=== PATIENT | female | born 1955 | race African-American/Black ===

== ENCOUNTER 2022-11-23 03:35 | Inpatient (IN) | payer OTHER ==
[~2022-11-23] VITALS: Ht 162.6 cm; Wt 127.0 kg
[2022-11-23] MEDS ORDERED: ONDANSETRON HCL 4 MG/2 ML VIAL IVP ONE ×2 (04:30→08:00)
[2022-11-23] MEDS ORDERED: SODIUM CHLORIDE 0.9% 1,000 ML IV ONE (04:30)
[2022-11-23] MEDS ORDERED: MORPHINE SULFATE 4 MG/ML SYRINGE IVP ONE (05:00)
[2022-11-23 05:07] LABS: BASOPHILS % (AUTO) 0.6 % (0.0-2.0); EOSINOPHILS % (AUTO) 1.6 % (1.0-6.0); HEMATOCRIT 38.9 % (36-46); HEMOGLOBIN 12.1 g/dL (12.0-16.0); LYMPHOCYTES # (AUTO) 1.1 K/uL (1.0-4.8); LYMPHOCYTES % (AUTO) 14.9 % (22.0-44.0); MEAN CORPUSCULAR HEMOGLOBIN 24.4 pg (26.0-34.0); MEAN CORPUSCULAR VOLUME 79 fL (80-100); MONOCYTES # (AUTO) 0.4 K/uL (0.1-1.0); MONOCYTES % (AUTO) 4.8 % (2.0-9.0); NEUTROPHILS # (AUTO) 5.8 K/uL (1.8-7.7); NEUTROPHILS % (AUTO) 78.1 % (40.0-70.0); PLATELET COUNT (AUTO) 266 K/uL (150-450); RED BLOOD CELL COUNT(AUTO) 4.95 MIL/uL (4.00-5.20)
[2022-11-23 05:17] LABS: ANION GAP 8 mmol/L (8-16); CARBON DIOXIDE 28 mmol/L (22-29); CHLORIDE 103 mmol/L (98-107); CREATININE 0.78 mg/dL (0.60-1.30); GLOMERULAR FILTR. RATE CALC > 60 mL/min (>60); GLUCOSE,RANDOM 155 mg/dL (70-110); SODIUM SERUM 139 mmol/L (136-145); UREA NITROGEN, BLOOD 8 mg/dL (7-18)
[2022-11-23 05:30] LABS: B-TYPE NATRIURETIC PEPTIDE 21 pg/mL (0-100)
[2022-11-23 05:34] LABS: ALBUMIN 3.9 g/dL (3.4-5.0); ALKALINE PHOSPHATASE 85 U/L (46-116); BILIRUBIN,TOTAL 0.4 mg/dL (0.1-1.0); LIPASE 105 U/L (73-393); TOTAL PROTEIN, SERUM 6.9 g/dL (6.4-8.2)
[2022-11-23 05:49] LABS: ALANINE AMINOTRANSFERASE 21 U/L (12-78); ASPARTATE AMINOTRANSFERASE 29 U/L (15-37)
[2022-11-23 06:03] LABS: COVID AG,FIA SOURCE NASAL SWAB
[2022-11-23] MEDS ORDERED: NITROGLYCERIN 2% (1 GM=INCH) OINTMENT PACKET TP ONE (07:30)
[2022-11-23] MEDS ORDERED: ASPIRIN 81 MG CHEWABLE TABLET PO ONE (07:30)
[2022-11-23] MEDS ORDERED: DEXTROSE 50%-WATER 25 GM/50 ML SYRINGE IVP PRN (09:30)
[2022-11-23] MEDS ORDERED: MAGNESIUM HYDROXIDE SUSPENSION 30 ML UDCUP PO PRN (09:45)
[2022-11-23] MEDS ORDERED: BISACODYL 10 MG RECTAL RECTAL SUPPOSITORY PR PRN (09:45)
[2022-11-23] MEDS ORDERED: ALBUTEROL SULFATE 2.5 MG/0.5 ML NEB SOLUTION NEB PRN (09:45)
[2022-11-23] MEDS ORDERED: IPRATROPIUM BROMIDE 0.5 MG/2.5 ML NEB SOLUTION NEB PRN (09:45)
[2022-11-23] MEDS ORDERED: 0.9% SODIUM CHLORIDE 10 ML SYRINGE IVP PRN (09:45)
[2022-11-23 10:31] VITALS: BP 156/91
[2022-11-23 10:31] LABS: APPEARANCE,URINE CLEAR (CLEAR); BILIRUBIN,URINE NEGATIVE (NEGATIVE); GLUCOSE, URINE (UA) TRACE mg/dL (NEGATIVE); KETONES,URINE NEGATIVE (NEGATIVE); LEUKOCYTE ESTERASE ,URINE NEGATIVE (NEGATIVE); NITRATE,URINE NEGATIVE (NEGATIVE); OCCULT BLOOD,URINE SMALL (NEGATIVE); PH,URINE 8.5 (5.0-8.0); PROTEIN,URINE NEGATIVE (NEGATIVE); SPECIFIC GRAVITIY, URINE 1.009 (1.003-1.030); UROBILINOGEN,URINE <=1.0 mg/dL (<=1.0)
[2022-11-23 10:37] LABS: AMPHET/METH SCREEN,URINE NEGATIVE (NEGATIVE); BARBITURATE SCREEN, URINE NEGATIVE (NEGATIVE); BENZODIAZEPINES SCREEN,URINE NEGATIVE (NEGATIVE); CANNABINOID SCREEN,URINE NEGATIVE (NEGATIVE); COCAINE SCREEN,URINE POSITIVE (NEGATIVE); METHADONE SCREEN, URINE NEGATIVE (NEGATIVE); OPIATE SCREEN,URINE POSITIVE (NEGATIVE); PHENCYCLIDINE SCREEN,URINE NEGATIVE (NEGATIVE)
[2022-11-23 10:43] LABS: AMYLASE 79 U/L (25-115); FREE T4 (FREE THYROXINE) 0.31 ng/dL (0.76-1.46); THYROID STIMULATING HORMONE 27.48 uIU/mL (0.36-3.74)
[2022-11-23 10:47] LABS: BACTERIA,URINE None Seen /HPF (None Seen); SQUAMOUS EPITHELIAL CELL,UR Few /LPF (None Seen); WBC,URINE None Seen /HPF (0-5)
[2022-11-23] MEDS: PANTOPRAZOLE SODIUM 40 MG/VIAL IVP SCH (11:15)
[2022-11-23] MEDS ORDERED: PNEUMOCOCCAL VACCINE POLYVALENT 0.5 ML VIAL [PPSV23] IM. ONE (11:30)
[2022-11-23] MEDS: ONDANSETRON HCL 4 MG/2 ML VIAL IVP PRN (12:20)
[2022-11-23 16:08] VITALS: BP 178/80
[2022-11-23] MEDS: HEPARIN SODIUM,PORCINE 5,000 UNITS/ML VIAL SQ SCH (16:16)
[2022-11-23] MEDS: ACETAMINOPHEN 325 MG TABLET PO PRN ×2 (16:16→21:28)
[2022-11-23 20:30] VITALS: BP 172/86
[2022-11-23] MEDS: METOPROLOL TARTRATE 25 MG TABLET PO SCH (21:19)
[2022-11-23 22:26] LABS: GLUCOMETER DEV NAME(LOC) 5S.1B; GLUCOSE,POINT OF CARE 134 MG/DL (70-110)
[2022-11-24 00:50] VITALS: BP 164/108
[2022-11-24 02:10] VITALS: BP 201/103
[2022-11-24] MEDS: ENALAPRILAT DIHYDRATE 1.25 MG/ML VIAL IVP PRN ×2 (03:49→20:20)
[2022-11-24 05:39] VITALS: BP 155/104
[2022-11-24 06:16] LABS: BASOPHILS % (AUTO) 0.4 % (0.0-2.0); EOSINOPHILS % (AUTO) 0 % (1.0-6.0); HEMATOCRIT 42.1 % (36-46); HEMOGLOBIN 13.2 g/dL (12.0-16.0); LYMPHOCYTES # (AUTO) 1.6 K/uL (1.0-4.8); LYMPHOCYTES % (AUTO) 13.7 % (22.0-44.0); MEAN CORPUSCULAR HEMOGLOBIN 24.3 pg (26.0-34.0); MEAN CORPUSCULAR HGB CONC 31.3 G/dL (31.0-37.0); MEAN CORPUSCULAR VOLUME 78 fL (80-100); MONOCYTES # (AUTO) 0.7 K/uL (0.1-1.0); MONOCYTES % (AUTO) 6.1 % (2.0-9.0); NEUTROPHILS # (AUTO) 9.3 K/uL (1.8-7.7); NEUTROPHILS % (AUTO) 79.8 % (40.0-70.0); PLATELET COUNT (AUTO) 385 K/uL (150-450); RED BLOOD CELL COUNT(AUTO) 5.42 MIL/uL (4.00-5.20); RED CELL DISTRIBUTION WIDTH 15.9 % (11.5-14.5)
[2022-11-24 06:51] LABS: GLUCOMETER DEV NAME(LOC) 5N.2C; GLUCOSE,POINT OF CARE 135 MG/DL (70-110)
[2022-11-24 06:52] LABS: % IRON SATURATION 33.6 % (22-44); IRON, SERUM 121 mcg/dL (50-175); TOTAL IRON BINDING CAPACITY 360 mcg/dL (250-450)
[2022-11-24 06:53] LABS: ALANINE AMINOTRANSFERASE 21 U/L (12-78); ALBUMIN 4.1 g/dL (3.4-5.0); ALKALINE PHOSPHATASE 90 U/L (46-116); ANION GAP 10 mmol/L (8-16); ASPARTATE AMINOTRANSFERASE 31 U/L (15-37); BILIRUBIN,TOTAL 0.6 mg/dL (0.1-1.0); CALCIUM, TOTAL 9.8 mg/dL (8.8-10.5); CARBON DIOXIDE 26 mmol/L (22-29); CHLORIDE 96 mmol/L (98-107); CHOL/HDL RATIO 4.2 (3.9-5.7); CHOLESTEROL 231 mg/dL (131-200); CREATININE 0.85 mg/dL (0.60-1.30); FERRITIN 45 ng/mL (8-252); GLOMERULAR FILTR. RATE CALC > 60 mL/min (>60); GLUCOSE,RANDOM 138 mg/dL (70-110); HDL CHOLESTEROL 55 mg/dL (40-60); LDL CHOL (CALC.) 157 mg/dL (0-130); POTASSIUM 3.4 mmol/L (3.5-5.1); SODIUM SERUM 132 mmol/L (136-145); TOTAL PROTEIN, SERUM 7.6 g/dL (6.4-8.2); TRIGLYCERIDES 96 mg/dL (15-150); UREA NITROGEN, BLOOD 5 mg/dL (7-18)
[2022-11-24] MEDS: PANTOPRAZOLE SODIUM 40 MG/VIAL IVP SCH (09:00)
[2022-11-24] MEDS: ASPIRIN 81 MG CHEWABLE TABLET PO SCH (09:37)
[2022-11-24] MEDS: METOPROLOL TARTRATE 25 MG TABLET PO SCH ×2 (09:37→20:18)
[2022-11-24] MEDS: HEPARIN SODIUM,PORCINE 5,000 UNITS/ML VIAL SQ SCH ×4 (09:37→23:56)
[2022-11-24] MEDS ORDERED: LEVOTHYROXINE SODIUM 25 MCG TABLET PO SCH (10:00)
[2022-11-24] MEDS ORDERED: POTASSIUM CHL 10 MEQ/WATER 50 ML IV PRN (11:45)
[2022-11-24 11:52] VITALS: BP 156/76
[2022-11-24] MEDS: CEPHALEXIN MONOHYDRATE 500 MG CAPSULE PO SCH ×2 (15:59→20:18)
[2022-11-24 17:27] LABS: GLUCOMETER DEV NAME(LOC) 5N.2C; GLUCOSE,POINT OF CARE 137 MG/DL (70-110)
[2022-11-24 20:10] VITALS: BP_SYST 157; BP_SYST 198; BP_DIAS 113
[2022-11-24] MEDS: INSULIN LISPRO 100 UNITS/ML SQ PRN (20:15)
[2022-11-24] MEDS: ONDANSETRON HCL 4 MG/2 ML VIAL IVP PRN (20:20)
[2022-11-24 20:31] LABS: GLUCOMETER DEV NAME(LOC) 5S.1B; GLUCOSE,POINT OF CARE 125 MG/DL (70-110)
[2022-11-24] MEDS: ACETAMINOPHEN 325 MG TABLET PO PRN (21:33)
[2022-11-24] MEDS: POTASSIUM CHLORIDE 20 MEQ ER TABLET PO PRN (23:55)
[2022-11-25] VITALS (8 sets, daily range): BP systolic 156–199; BP diastolic 86–125
[2022-11-25 00:07] LABS: GLUCOMETER DEV NAME(LOC) 5N.2C; GLUCOSE,POINT OF CARE 161 MG/DL (70-110)
[2022-11-25] MEDS: ACETAMINOPHEN 325 MG TABLET PO PRN ×5 (02:13→20:45)
[2022-11-25] MEDS: ENALAPRILAT DIHYDRATE 1.25 MG/ML VIAL IVP PRN (02:38)
[2022-11-25] MEDS: LEVOTHYROXINE SODIUM 50 MCG TABLET PO SCH (05:23)
[2022-11-25 05:41] LABS: GLUCOMETER DEV NAME(LOC) 5S.2C; GLUCOSE,POINT OF CARE 131 MG/DL (70-110)
[2022-11-25] MEDS: POTASSIUM CHLORIDE 20 MEQ ER TABLET PO PRN (06:39)
[2022-11-25] MEDS ORDERED: AmLODIPine BESYLATE 5 MG TABLET PO SCH (09:00)
[2022-11-25] MEDS: PANTOPRAZOLE SODIUM 40 MG/VIAL IVP SCH (10:01)
[2022-11-25] MEDS: MULTIVITAMINS WITH MINERALS, THERAPEUTIC TABLET PO SCH (10:02)
[2022-11-25] MEDS: METOPROLOL TARTRATE 25 MG TABLET PO SCH ×2 (10:02→20:46)
[2022-11-25] MEDS: ASPIRIN 81 MG CHEWABLE TABLET PO SCH (10:02)
[2022-11-25] MEDS: HEPARIN SODIUM,PORCINE 5,000 UNITS/ML VIAL SQ SCH ×3 (10:03→22:44)
[2022-11-25] MEDS: CEPHALEXIN MONOHYDRATE 500 MG CAPSULE PO SCH ×3 (10:54→20:45)
[2022-11-25] MEDS: AmLODIPine BESYLATE 5 MG TABLET PO SCH (12:19)
[2022-11-25 18:11] LABS: GLUCOMETER DEV NAME(LOC) 6N.1; GLUCOSE,POINT OF CARE 123 MG/DL (70-110)
[2022-11-25 18:11] LABS: GLUCOMETER DEV NAME(LOC) 6N.1; GLUCOSE,POINT OF CARE 133 MG/DL (70-110)
[2022-11-25] MEDS: INSULIN LISPRO 100 UNITS/ML SQ PRN (20:50)
[2022-11-25] MEDS: MELATONIN 3 MG TABLET PO PRN (22:43)
[2022-11-25 23:41] LABS: GLUCOMETER DEV NAME(LOC) 6N.1; GLUCOSE,POINT OF CARE 156 MG/DL (70-110)
[2022-11-26] MEDS: ACETAMINOPHEN 325 MG TABLET PO PRN ×5 (00:47→20:41)
[2022-11-26 04:15] VITALS: BP 164/79
[2022-11-26] MEDS: INSULIN LISPRO 100 UNITS/ML SQ PRN ×4 (05:12→20:40)
[2022-11-26] MEDS: LEVOTHYROXINE SODIUM 50 MCG TABLET PO SCH (05:13)
[2022-11-26 05:56] LABS: GLUCOMETER DEV NAME(LOC) 6N.1; GLUCOSE,POINT OF CARE 172 MG/DL (70-110)
[2022-11-26 07:22] VITALS: BP 151/72
[2022-11-26] MEDS: METOPROLOL TARTRATE 25 MG TABLET PO SCH ×2 (08:57→20:41)
[2022-11-26] MEDS: CEPHALEXIN MONOHYDRATE 500 MG CAPSULE PO SCH ×3 (08:57→20:42)
[2022-11-26] MEDS: MULTIVITAMINS WITH MINERALS, THERAPEUTIC TABLET PO SCH (08:57)
[2022-11-26] MEDS: AmLODIPine BESYLATE 5 MG TABLET PO SCH (08:57)
[2022-11-26] MEDS: HEPARIN SODIUM,PORCINE 5,000 UNITS/ML VIAL SQ SCH ×3 (08:58→23:05)
[2022-11-26] MEDS: ASPIRIN 81 MG CHEWABLE TABLET PO SCH (08:58)
[2022-11-26] MEDS ORDERED: AmLODIPine BESYLATE 5 MG TABLET PO SCH (09:00)
[2022-11-26] MEDS: PANTOPRAZOLE SODIUM 40 MG/VIAL IVP SCH (09:07)
[2022-11-26 19:36] VITALS: BP 160/93
[2022-11-26] MEDS: MELATONIN 3 MG TABLET PO PRN (20:41)
[2022-11-26 22:46] LABS: GLUCOMETER DEV NAME(LOC) 6N.2B; GLUCOSE,POINT OF CARE 149 MG/DL (70-110)
[2022-11-26 22:47] LABS: GLUCOMETER DEV NAME(LOC) 6N.2B; GLUCOSE,POINT OF CARE 185 MG/DL (70-110)
[2022-11-27] MEDS: ACETAMINOPHEN 325 MG TABLET PO PRN ×3 (01:26→10:22)
[2022-11-27 04:36] LABS: GLUCOMETER DEV NAME(LOC) 6N.1; GLUCOSE,POINT OF CARE 193 MG/DL (70-110)
[2022-11-27] MEDS: LEVOTHYROXINE SODIUM 50 MCG TABLET PO SCH (05:39)
[2022-11-27 07:30] LABS: GLUCOMETER DEV NAME(LOC) 6N.1; GLUCOSE,POINT OF CARE 138 MG/DL (70-110)
[2022-11-27] MEDS: HEPARIN SODIUM,PORCINE 5,000 UNITS/ML VIAL SQ SCH (08:00)
[2022-11-27 08:44] VITALS: BP 94/39
[2022-11-27] MEDS: METOPROLOL TARTRATE 25 MG TABLET PO SCH (08:46)
[2022-11-27] MEDS: ASPIRIN 81 MG CHEWABLE TABLET PO SCH (08:47)
[2022-11-27] MEDS: AmLODIPine BESYLATE 5 MG TABLET PO SCH (08:47)
[2022-11-27] MEDS: MULTIVITAMINS WITH MINERALS, THERAPEUTIC TABLET PO SCH (08:48)
[2022-11-27] MEDS: CEPHALEXIN MONOHYDRATE 500 MG CAPSULE PO SCH (08:48)
[2022-11-27] MEDS: PANTOPRAZOLE SODIUM 40 MG/VIAL IVP SCH (08:50)
== END 2022-11-27 11:50 | disposition home or self-care (01) | DRG 812 ==
LOC: EMS 03:36 → 5S 09:19 → 6N 11-25 08:15
PROVIDERS: ADMIT Internal Medicine; ATTEND Internal Medicine
PROC: 05HB33Z Insertion of Infusion Device into Right Basilic Vein, Percutaneous Approach (ICD-10-PCS; principal; 2022-11-24)
DX: T50.911A Poisoning by multiple unspecified drugs, medicaments and biological substances, accidental (unintentional), initial encounter (principal); I21.A1 Myocardial infarction type 2; R65.10 Systemic inflammatory response syndrome (SIRS) of non-infectious origin without acute organ dysfunction; E11.9 Type 2 diabetes mellitus without complications; L03.115 Cellulitis of right lower limb; I11.9 Hypertensive heart disease without heart failure; E66.01 Morbid (severe) obesity due to excess calories; L03.116 Cellulitis of left lower limb; F19.10 Other psychoactive substance abuse, uncomplicated; T40.5X1A Poisoning by cocaine, accidental (unintentional), initial encounter; F14.10 Cocaine abuse, uncomplicated; R10.9 Unspecified abdominal pain; I87.2 Venous insufficiency (chronic) (peripheral); E78.5 Hyperlipidemia, unspecified; E03.9 Hypothyroidism, unspecified; Z87.891 Personal history of nicotine dependence; Z59.00 Homelessness unspecified; Z90.49 Acquired absence of other specified parts of digestive tract; Z98.891 History of uterine scar from previous surgery; Z68.42 Body mass index [BMI] 45.0-49.9, adult; Z82.49 Family history of ischemic heart disease and other diseases of the circulatory system
CPT/HCPCS: 36245; 36569; 71045; 74176; 76937; 80053; 80061; 80307; 81001; 82150; 82728; 82962; 83036; 83540; 83550; 83690; 83735; 83880; 84132; 84145; 84439; 84443; 84484; 85025; 93005; 93306; 97162; 97530; 99285; C9113; G0378; G0480; J1644; J2270; J2405; J3490; J7030; 36415-L1; 36415-TC